=== PATIENT | female | born 1975 | race Caucasian/White ===

== ENCOUNTER 2016-08-19 12:25 | Inpatient (IN) | payer BC ==
[2016-08-16 13:19] VITALS: BMI 37.0
--- NOTE | 2016-08-16 13:42 | PAT Medication Instructions ---
Service Date Aug 16, 2016. Current Home Medication List Heparin Sod (Porcine) (Heparin Sodium), 10,000 UNITS SQ BID Insulin Human NPH (Humulin N), 42 UNITS SQ HS Insulin Lispro (Human) (Humalog), 8 UNITS SQ DINNERTIME Multivit/Min/Iron/Fol Ac/Pren ( Vitamin), 1 TAB PO QAM Medication Instructions For Your Scheduled Surgery Heparin Sod (Porcine) (Heparin Sodium), 10,000 UNITS SQ BID (patient will check with OB doctor for instructions) - Hold the following medications the morning of surgery: Multivit/Min/Iron/Fol Ac/Pren ( Vitamin), 1 TAB PO QAM - Take the following medications as scheduled the night before surgery: Insulin Human NPH (Humulin N), 42 UNITS SQ HS Insulin Lispro (Human) (Humalog), 8 UNITS SQ DINNERTIME If you have any questions please call us at [phone] or [phone] ( [place]) or [phone]
[2016-08-16 14:47] LABS: BASO % 0.2 %; BASO ABS # 0.02 K/uL (0-0.2); COMPLETE YES; EOS % 0.9 %; HEMATOCRIT 32.2 % (37-47); IG% 0.4 %; LYMPH % 19.6 %; MEAN CELL VOLUME 86.3 fL (80-100); MEAN CORPUSCULAR HEMOGLOBIN 29.8 pg (25-34); MEAN CORPUSCULAR HGB CONC 34.5 g/dl (32-36); MEAN PLATELET VOLUME 11.6 fL (7.4-10.4); MONO % 6.1 %; NEUT % 72.8 %; PLATELET COUNT 228 K/uL (130-400); RED BLOOD COUNT 3.73 M/uL (4.2-5.4); WHITE BLOOD COUNT 9.19 K/uL (4.8-10.8)
[~2016-08-19] VITALS: Ht 170.2 cm; Wt 110.0 kg
[~2016-08-19 12:25] MED LIST: HMLNPUC SQ; INSU100I SQ; PRENTAB26 PO; [UNRECOGNIZED DRUG - CODE] SQ
[2016-08-19] MEDS ORDERED: CITRIC ACID/SODIUM CITRATE 15 ML UDC PO SCH (13:00)
[2016-08-19] MEDS ORDERED: CEFAZOLIN IV 3,000 MG in DEXTROSE 5% 50ML IV SCH (13:00)
[2016-08-19] MEDS ORDERED: LACTATED RINGER'S 1000ML 1,000 ML IV SCH ×2 (13:00→14:50)
[2016-08-19] MEDS ORDERED: LACTATED RINGER'S 1000ML 1,000 ML IV PRN (14:50)
[2016-08-19] MEDS ORDERED: CITRIC ACID/SODIUM CITRATE 15 ML UDC PO ONE (15:00)
--- NOTE | 2016-08-19 15:06 | Progress Note ---
Progress Note Date of Service Aug 19, 2016. Progress Note Admit Note 40 WF P1001 at 37.2 weeks seen in [place] today for NST and noted to have elevated BP on several measurements. Urine protein today on L&D was negative. Mild headaches with no visual disturbances. No nausea or vomiting and no abdominal pain or vaginal bleeding. She has a history of prior at term and has GDM on insulin. She takes 8 units Sub-Q before dinner and 42 units Sub-Q at bedtime. Class 2 obesity. She has a history of Factor V Leiden mutation with prior DVT and was on Lovenox 40 mg sub-Q daily and converted to Heparin 10,000 units every 12 hours at 36 weeks. Her last dose was around 10-10 :30 PM last night. She had a light breakfast this AM and no lunch today. Patient was scheduled fror a repeat and bilaterl tubal ligation on September. Due to gestational hypertension and diabetes will proceed wit repeat and tubal ligation.
[2016-08-19 15:52] VITALS: Ht 170.2 cm; Wt 110.0 kg
[2016-08-19 15:56] LABS: HEMATOCRIT 32.9 % (37-47); MEAN CELL VOLUME 86.1 fL (80-100); MEAN CORPUSCULAR HEMOGLOBIN 29.6 pg (25-34); MEAN CORPUSCULAR HGB CONC 34.3 g/dl (32-36); MEAN PLATELET VOLUME 11.4 fL (7.4-10.4); PLATELET COUNT 223 K/uL (130-400); RED BLOOD COUNT 3.82 M/uL (4.2-5.4); WHITE BLOOD COUNT 9.91 K/uL (4.8-10.8)
--- NOTE | 2016-08-19 16:04 | HISTORY & PHYSICAL EXAMINATION ---
DATE OF ADMISSION: 08/19/2016 REASON FOR ADMISSION: Elevated blood pressure and gestational diabetes, on insulin. HISTORY OF PRESENT ILLNESS: The patient is a 40-year-old female para 1-0-0-1 at 37.2 weeks' here at [facility] today by Dr. Mena for an NST, noted to have elevated blood pressures several measurements. The patient presented to L\T\D today after being sent here for persistent elevated blood pressures and mild headaches with no visual disturbances. The patient is currently on insulin 8 units subQ before dinner and 42 units subQ at bedtime. She is class 2 obese, factor V Leiden, history of DVT, on heparin 10,000 units q. 12 along with vitamins. The patient last had her dose of heparin at about 10:30 last night and had a light breakfast this morning. She is scheduled for an elective repeat section on 09/03/2016 due to prior that was done in 2011, unknown scar. PAST MEDICAL HISTORY: Class 2 obesity, gestational diabetes with insulin, prior section, factor V Leiden, allergic rhinitis, GERD, and elderly multigravida. PAST SURGICAL HISTORY: in 2011, ankle surgery in 2012, colonoscopy and endoscopy. FAMILY HISTORY: Noncontributory. REVIEW OF SYSTEMS: Negative. ALLERGIES: No known allergies. MEDICATIONS: Eight units of subQ insulin before dinner and 22 units of subQ insulin at bedtime, and vitamins. PHYSICAL EXAMINATION: HEENT: Within normal limits. LUNGS: Clear to auscultation. COR: Regular rate and rhythm. ABDOMEN: Soft, nontender, gravid. heart tone category 1. EXTREMITIES: 2+ edema, bilateral. NEUROLOGICALLY: Intact. Negative clonus. LABORATORY DATA: Pending. ASSESSMENT: Gestational hypertension with diabetes, on insulin. PLAN: Repeat section and bilateral tubal ligation due to gestational hypertension.
[2016-08-19 16:07] LABS: FIBRINOGEN* 532 mg/dl (184-400); INR 0.9 (0.9-1.1); PARTIAL THROMBOPLASTIN RATIO 1.1; PROTHROMBIN TIME (PATIENT) 9.1 SECONDS (9.0-12.0)
[2016-08-19 16:14] LABS: ALT/SGPT 19 U/L (12-78); AST/SGOT 21 U/L (15-37); BLOOD UREA NITROGEN 8 mg/dl (7-18); BUN/CREATININE RATIO 11.3 (10-20); CALCIUM 8.3 mg/dl (8.5-10.1); CARBON DIOXIDE 23 mmol/L (21-32); CHLORIDE 109 mmol/L (98-107); CREATININE 0.75 mg/dl (0.60-1.20); GLUCOSE 62 mg/dl (70-99); POTASSIUM 3.8 mmol/L (3.5-5.1); SODIUM 141 mmol/L (136-145); URIC ACID 4.7 mg/dl (2.6-7.2)
[2016-08-19 16:17] LABS: ALB/GLOB RATIO 0.6 (0.9-2); ALKALINE PHOSPHATASE 130 U/L (45-117)
[2016-08-19] MEDS ORDERED: MoRPHine SULFATE PF 1 MG/ML 10 ML AMP/VIAL ONE (17:02)
[2016-08-19] MEDS ORDERED: FENTANYL CITRATE INJ 50 MCG/1 ML 2 ML VIAL ONE (17:02)
[2016-08-19] MEDS ORDERED: OXYTOCIN INJ 10 UNITS/ML VIAL ONE ×2 (17:41→18:11)
[2016-08-19] MEDS ORDERED: NALOXONE HCL INJ 0.08 MG in SYRINGE 1.8 ML IV PRN (17:46)
[2016-08-19] MEDS ORDERED: NALOXONE HCL INJ 1 MG in SODIUM CHLORIDE 0.9% 1000ML 1,000 ML IV PRN ×4 (17:46)
[2016-08-19] MEDS ORDERED: LACTATED RINGER'S 1000ML 500 ML IV PRN (17:46)
[2016-08-19] MEDS ORDERED: SODIUM CHLORIDE 0.9% 1000ML 1,000 ML IV PRN (17:46)
[2016-08-19] MEDS ORDERED: EpHEDrine SULFATE INJ 50 MG/ML AMP IV PRN (18:00)
[2016-08-19] MEDS ORDERED: NALOXONE HCL 0.4 MG/1 ML VIAL/CARP IV PRN (18:00)
[2016-08-19] MEDS ORDERED: NO NARCOTICS OR SEDATIVES SCH (18:00)
[2016-08-19] MEDS ORDERED: PROMETHAZINE HCL INJ 25 MG in SODIUM CHLORIDE 0.9% 50ML 50 ML IV PRN (18:00)
[2016-08-19] MEDS ORDERED: DiphenhydrAMINE HCL 50 MG/ML VIAL IV PRN (18:00)
[2016-08-19] MEDS ORDERED: NALBUPHINE HCL INJ 10 MG/ML AMP IV PRN (18:00)
[2016-08-19] MEDS ORDERED: ONDANSETRON INJ 2 MG/ML 2 ML VIAL IV PRN ×2 (18:00→18:45)
[2016-08-19] MEDS ORDERED: MoRPHine SULFATE PF 1 MG/ML 10 ML AMP/VIAL EPI PRN (18:00)
[2016-08-19] MEDS ORDERED: OXYTOCIN INJ 20 UNITS in LACTATED RINGER'S 1000ML 1,000 ML IV SCH (18:33)
--- NOTE | 2016-08-19 18:39 | [facility] Post Operative Brief Note ---
Immediate Operative Summary Operative Date Aug 19, 2016. Pre-Operative Diagnosis Gestational hypertension, gestational diabetes, class 2 obesity, history of deep vein thrombosis, Factor V Leiden, prior caesarean section, desires sterilization. Post-Operative Diagnosis Same Procedure(s) Performed Repeat section low segment transverse Bilateral tubal ligation with Filshie clips Surgeon Dr. Diego Heart Skiver Uppers Or Linings Surgeon(s) Dr. Codie Wilson Estimated Blood Loss 400 ml. Findings live female with Apgars 8/9 weight 5-15 2 true knots in cord Fluids (cc crystalloids) LR 1000 ml. Specimens A- Placenta- B- Cord blood D- Portion of Left Fallopian tube Drains Ponce 200 ml. Anesthesia spinal Complication(s) None Disposition L&D
[2016-08-19] MEDS ORDERED: SENNA 8.6 MG TAB PO PRN (18:45)
[2016-08-19] MEDS ORDERED: DIPHTHERIA/TETANUS/PERTUSSIS 0.5 ML SYR/VIAL IM. ONE (18:45)
[2016-08-19] MEDS ORDERED: MEASLES, MUMPS & RUBELLA VIRUS VIAL SQ. ONE (18:45)
[2016-08-19] MEDS ORDERED: MAGNESIUM HYDROXIDE SUSP 30 ML UDC PO PRN (18:45)
[2016-08-19] MEDS ORDERED: HYDROCORTISONE ACETATE 25 MG SUPP PR PRN (18:45)
[2016-08-19] MEDS ORDERED: SUPERCREAM 0.870 % 15GM JAR EXT PRN (18:45)
[2016-08-19] MEDS ORDERED: LANOLIN OINT EXT PRN ×2 (18:45)
[2016-08-19] MEDS ORDERED: BENZOCAINE 20% AER SPR 82.5 GM CAN EXT PRN (18:45)
--- NOTE | 2016-08-19 18:47 | Anesthesiology Progress Note ---
Anesthesia Post Op Note Date & Time Aug 19, 2016 at 18:46 Notes Mental Status: alert / awake / arousable, participated in evaluation Pt Amnestic to Procedure: No Nausea / Vomiting: adequately controlled Pain: adequately controlled Airway Patency, RR, SpO2: stable & adequate BP & HR: stable & adequate Hydration State: stable & adequate Neuraxial Anesthesia: was administered, sensory block is resolving Anesthetic Complications: no major complications apparent
[2016-08-19] MEDS: KETOROLAC TROMETHAMINE 30 MG/ML VIAL IV. PRN (19:33)
--- NOTE | 2016-08-19 20:15 | OPERATIVE REPORT ---
DATE OF ADMISSION: 08/19/2016 PREOPERATIVE DIAGNOSES: at 37 weeks' and 2 days with gestational hypertension, diabetes on insulin and voluntary sterilization. POSTOPERATIVE DIAGNOSES: Same. PROCEDURE: Repeat section, low segment transverse and bilateral tubal ligation with Filshie clips. SURGEON: Diego Heart MD PIANO REGULATOR: Dr. Wilson ANESTHESIA: Spinal with Duramorph. CLINICAL HISTORY: The patient is a 40-year-old female, para 1-0-0-1 at 37 weeks' and 2 days; admitted after being seen today in the office at [place] for gestational hypertension that has been persistent today. She has gestational diabetes on insulin, history of factor V Leiden on heparin for previous DVT. The patient consented for repeat section and a bilateral tubal ligation, a timeout was called prior to the start of the procedure and the patient received antibiotics preop. DESCRIPTION OF PROCEDURE: Under satisfactory spinal anesthesia, the patient was prepped and draped in usual sterile fashion. A low Pfannenstiel incision through a prior scar was made, entering into the abdominal cavity in successive layers without difficulty. Upon entering into the lower uterine segment, pickups with teeth and Metzenbaum scissors were used to develop a bladder flap. This was gently dissected down. A low segment transverse incision over the lower uterine segment was made. The incision was widened. The amniotic sac was nicked with an Allis clamp. Clear fluid was noted. The infant was then delivered from the vertex presentation with the aid of fundal pressure. After the infant was delivered, the cord was allowed to stop pulsating; it was then doubly clamped and cut. It was noted that there was a double true knot in the cord. Cord blood was obtained. Placenta was then delivered spontaneously, intact and submitted to pathology as a separate specimen. The uterus was then exteriorized. Pitocin was started in the IV. Ring forceps were then placed on both angles and then the inferior margin and another ring was used to dilate the cervix. The cervix was closed in a double layer closure with 0 Vicryl suture in a continuous interlocking fashion followed by an imbricating suture. Tubes and ovaries bilaterally were found to be within normal limits. There was no active bleeding. The tubes were then identified and 2 Filshie clips were then applied to both the right and left tubes serially. At the end of this procedure, no active bleeding was noted. The contents of the pelvic cavity were then irrigated to clear. The uterus was placed back into the normal anatomical position. The initial sponge, needle and instrument count were found to be correct. Several pieces of Seprafilm were then placed over the lower uterine segment and in the midline of the uterus. The fascia was then reapproximated with 0 Vicryl suture in a continuous fashion. Subcuticular space was irrigated and then closed with 3-0 plain suture interrupted and the skin was reapproximated with 4-0 Monocryl subcuticular suture. Steri-Strips were then applied. Clear urine was noted from the Ponce. Estimated blood loss was 400 mL, urine output was 200 mL and total fluids LR 1000 mL The patient was then placed supine on a stretcher. The final sponge, needle and instrument count were found to be correct and she was moved to the recovery room in stable condition. ELIZABETH
[2016-08-19] MEDS: SIMETHICONE 80 MG CHEW PO SCH (20:34)
[2016-08-19] MEDS: DOCUSATE SODIUM 100 MG CAP PO SCH (20:34)
[2016-08-19 20:45] VITALS: BP 165/82; PULSE 80; TEMP 37; O2SAT 100
[2016-08-19 21:30] VITALS: O2SAT 98
[2016-08-19 22:30] VITALS: O2SAT 98
[2016-08-19 23:30] VITALS: BP 146/89; PULSE 65; TEMP 36.7; O2SAT 98
[2016-08-20] VITALS (19 sets, daily range): BP systolic 136–150; BP diastolic 84–92; PULSE 67–87; TEMP 36.7–36.9; O2SAT 94–99
[2016-08-20] MEDS: LACTATED RINGER'S 1000ML 1,000 ML IV SCH ×2 (03:52→11:31)
[2016-08-20] MEDS: KETOROLAC TROMETHAMINE 30 MG/ML VIAL IV. PRN ×2 (03:59→11:46)
[2016-08-20] MEDS ORDERED: CEFAZOLIN IV 3,000 MG in DEXTROSE 5% 50ML 50 ML IV SCH (06:00)
[2016-08-20 06:26] LABS: BASO % 0.3 %; BASO ABS # 0.03 K/uL (0-0.2); COMPLETE YES; EOS % 0.7 %; HEMATOCRIT 26.6 % (37-47); IG% 0.2 %; LYMPH % 17.9 %; LYMPH ABS # 1.75 K/uL (1.2-3.4); MEAN CELL VOLUME 86.1 fL (80-100); MEAN CORPUSCULAR HEMOGLOBIN 29.4 pg (25-34); MEAN CORPUSCULAR HGB CONC 34.2 g/dl (32-36); MONO % 6.2 %; NEUT % 74.7 %; PLATELET COUNT 178 K/uL (130-400); RED BLOOD COUNT 3.09 M/uL (4.2-5.4); WHITE BLOOD COUNT 9.77 K/uL (4.8-10.8)
--- NOTE | 2016-08-20 07:34 | OB/GYN Progress Note ---
[employer] [facility] Progress Note Date of Service: Aug 20, 2016. Patient is seen and examined. She feels well, no complaints. Pain is under control with meds. Not OOB yet Tolerating clear diet with out N&V Bleeding is minimal No fever/ chills/ CP/ SOB/ N&V/ Leg pain Bottle feeding without problems Date Time Temp Pulse Resp B/P Pulse Ox O2 Delivery O2 Flow Rate FiO2 08/20/16 06:28 20 97 08/20/16 05:31 18 94 08/20/16 04:27 18 98 08/20/16 03:45 36.7 67 18 150/91 98 Room Air 08/20/16 03:30 18 98 08/20/16 02:30 18 96 08/20/16 01:30 18 96 08/20/16 00:30 18 98 08/19/16 23:30 36.7 65 18 146/89 98 Room Air 08/19/16 23:30 98 Room Air 08/19/16 23:30 18 98 08/19/16 22:30 18 98 08/19/16 21:30 18 98 08/19/16 20:45 37.0 80 18 165/82 100 Room Air 08/19/16 20:45 100 Room Air 08/19/16 20:45 Room Air 08/19/16 20:45 18 100 Repeat BP: 136/84 8-Hour Column 08/19/16 08/20/16 08/20/16 16:00 00:00 08:00 Intake Total 324 ml 1352 ml Output Total 100 ml 550 ml Balance 224 ml 802 ml 24-Hour Column 08/20/16 08:00 Intake Total 1676 ml Output Total 650 ml Balance 1026 ml Results Past 24 Hours Test 08/19/16 15:40 08/19/16 16:32 08/20/16 06:05 Range/Units White Blood Count 9.91 9.77 4.8-10.8 K/uL Red Blood Count 3.82 3.09 4.2-5.4 M/uL Hemoglobin 11.3 9.1 12.0-16.0 g/dL Hematocrit 32.9 26.6 37-47 % Mean Corpuscular Volume 86.1 86.1 80-100 fL Mean Corpuscular Hemoglobin 29.6 29.4 25-34 pg Mean Corpuscular Hemoglobin Concent 34.3 34.2 32-36 g/dl RDW Standard Deviation 42.4 42.6 36.4-46.3 fL RDW Coefficient of Variation 13.5 13.4 11.5-14.5 % Platelet Count 223 178 130-400 K/uL Mean Platelet Volume 11.4 11.0 7.4-10.4 fL Prothrombin Time 9.1 9.0-12.0 SECONDS Prothromb Time International Ratio 0.9 0.9-1.1 Activated Partial Thromboplast Time 29.4 21.0-31.0 SECONDS Partial Thromboplastin Ratio 1.1 Fibrinogen 532 184-400 mg/dl Fibrin Degradation Products 10-40 <10 mcg/ml Sodium Level 141 136-145 mmol/L Potassium Level 3.8 3.5-5.1 mmol/L Chloride Level 109 98-107 mmol/L Carbon Dioxide Level 23 21-32 mmol/L Anion Gap 9.0 3-11 mmol/L Blood Urea Nitrogen 8 7-18 mg/dl Creatinine 0.75 0.60-1.20 mg/dl Est Creatinine Clear Calc Drug Dose 130.0 ml/min Estimated GFR () 117.2 Estimated GFR (Non- 101.1 BUN/Creatinine Ratio 11.3 10-20 Random Glucose 62 70-99 mg/dl Uric Acid 4.7 2.6-7.2 mg/dl Calcium Level 8.3 8.5-10.1 mg/dl Total Bilirubin 0.3 0.2-1 mg/dl Direct Bilirubin < 0.1 0-0.2 mg/dl Aspartate Amino Transf (AST/SGOT) 21 15-37 U/L Alanine Aminotransferase (ALT/SGPT) 19 12-78 U/L Alkaline Phosphatase 130 45-117 U/L Lactate Dehydrogenase 274 84-246 U/L Total Protein 6.7 6.4-8.2 gm/dl Albumin 2.4 3.4-5.0 gm/dl Globulin 4.3 2.5-4.0 gm/dl Albumin/Globulin Ratio 0.6 0.9-2 Bedside Glucose 63 70-90 mg/dl Neutrophils (%) (Auto) 74.7 % Lymphocytes (%) (Auto) 17.9 % Monocytes (%) (Auto) 6.2 % Eosinophils (%) (Auto) 0.7 % Basophils (%) (Auto) 0.3 % Neutrophils # (Auto) 7.29 1.4-6.5 K/uL Lymphocytes # (Auto) 1.75 1.2-3.4 K/uL Monocytes # (Auto) 0.61 0.11-0.59 K/uL Eosinophils # (Auto) 0.07 0-0.5 K/uL Basophils # (Auto) 0.03 0-0.2 K/uL Immature Granulocyte % (Auto) 0.2 % Immature Granulocyte # (Auto) 0.02 0.00-0.02 K/uL PE: General: Alert, orientedx3, NAD CVS: S1S2 RRR Lungs; CTAB Abd: soft, NT, fundus firm, below Umbilicus Dressin: Clean, dry, intact Perineum intact, Lochia rubra minimal Ext; NT, 1+/1+ edema, SCD's on, no erythema or cord AP: 40 yo s/p RC Section, BTL pod# 1 VSS Afebrile doing well Continue routine postop care Will stat Lovenox today Encourage ambulation, PO intake All questions were answered
[2016-08-20] MEDS: FERROUS SULFATE 325 MG TAB PO SCH (08:23)
[2016-08-20] MEDS: DOCUSATE SODIUM 100 MG CAP PO SCH ×2 (08:23→20:43)
[2016-08-20] MEDS: SIMETHICONE 80 MG CHEW PO SCH ×4 (08:24→20:43)
[2016-08-20] MEDS: PRENATAL VITAMIN TAB PO SCH (08:24)
[2016-08-20] MEDS ORDERED: MEPERIDINE HCL 75 MG/ML CARP IV PRN (12:30)
[2016-08-20] MEDS ORDERED: KETOROLAC TROMETHAMINE 30 MG/ML VIAL IV. PRN (12:30)
[2016-08-20] MEDS ORDERED: DiphenhydrAMINE HCL 50 MG/ML VIAL IV PRN (12:30)
[2016-08-20] MEDS ORDERED: MEPERIDINE HCL 50 MG/ML CARP IV PRN (12:30)
[2016-08-20] MEDS ORDERED: OXYCODONE/ACETAMINOPHEN 5-325 TAB PO PRN (12:30)
[2016-08-20] MEDS ORDERED: DC INTRASPINAL MORPHINE SCH (12:30)
[2016-08-20] MEDS: OXYCODONE/ACETAMINOPHEN 5-325 TAB PO PRN ×2 (17:18→23:37)
[2016-08-20] MEDS: ENOXAPARIN 40 MG/0.4 ML SYR SQ SCH (18:02)
[2016-08-20] MEDS: IBUPROFEN 600 MG TAB PO PRN ×2 (19:19→23:37)
[2016-08-20] MEDS ORDERED: BISACODYL 5 MG TABEC PO ONE (22:00)
[2016-08-21 04:15] VITALS: BP 131/77; PULSE 72; TEMP 36.5
[2016-08-21] MEDS: FERROUS SULFATE 325 MG TAB PO SCH (07:39)
[2016-08-21] MEDS: SIMETHICONE 80 MG CHEW PO SCH ×4 (07:39→19:56)
[2016-08-21] MEDS: IBUPROFEN 600 MG TAB PO PRN ×4 (07:40→21:14)
[2016-08-21] MEDS: PRENATAL VITAMIN TAB PO SCH (07:40)
[2016-08-21] MEDS: OXYCODONE/ACETAMINOPHEN 5-325 TAB PO PRN ×4 (07:40→21:15)
[2016-08-21 08:00] VITALS: BP 142/87; PULSE 74; TEMP 36.8
[2016-08-21] MEDS: DOCUSATE SODIUM 100 MG CAP PO SCH ×2 (08:02→19:56)
--- NOTE | 2016-08-21 10:26 | OB/GYN Progress Note ---
TRANSPORTATION ASSISTANT Progress Note Date of Service Aug 21, 2016. Subjective conversation w/ patient, physical exam Ambulation: ambulating normally Voiding: no voiding problems Passing Gas: Yes Diet Tolerance: Regular Diet Lochia: Moderate Feeding Type: Breast Feeding Review of Systems Constitutional: No chills, No fatigue, No fever, No problem reported, No sweats , No weakness, No weight loss Respiratory: No cough, No dyspnea at rest, No dyspnea on exertion, No hemoptysis, No problem reported, No shortness of breath, No sputum, No wheezing Cardiac: No PND, No chest pain, No claudication, No edema, No orthopnea, No palpitations, No problem reported Breast: No breast lump, No breast pain, No change in shape, No nipple discharge , No problem reported, No see HPI Abdomen: No GI bleeding, No constipation, No diarrhea, No nausea, No pain, No problem reported, No vomiting Female : No abnormal vaginal bleeding, No dysuria, No hematuria, No incontinence, No problem reported, No see HPI, No urinary frequency, No vaginal discharge Objective Vital Signs Date Time Temp Pulse Resp B/P Pulse Ox O2 Delivery O2 Flow Rate FiO2 08/21/16 08:00 36.8 74 18 142/87 Room Air 08/21/16 07:45 Room Air 08/21/16 04:15 36.5 72 18 131/77 Room Air 08/20/16 23:40 Room Air 08/20/16 23:40 36.8 87 18 148/89 Room Air 08/20/16 21:00 36.7 83 18 140/85 98 Room Air 08/20/16 16:40 36.7 76 18 145/92 99 Room Air 08/20/16 16:40 99 Room Air 08/20/16 11:40 36.8 75 18 145/85 96 Room Air 08/20/16 11:30 18 96 08/20/16 10:34 16 97 Physical Exam General Appearance: WELL-APPEARING, WD/WN Respiratory/Chest: chest non-tender, lungs clear, normal breath sounds, no respiratory distress, no accessory muscle use Cardiovascular: regular rate, rhythm, no edema, no gallop, no JVD, no murmur Abdomen: normal bowel sounds, non tender, soft, no organomegaly, no pulsatile mass Fundus: Firm Incision Description: Clean, Dry & Intact, Erythema Extremities: normal range of motion, non-tender, normal inspection, no pedal edema, no calf tenderness Assessment and Plan Day Number: 2 Continue Routine Care: Hx of VTE- on Lovenox anticipate disch tomorrow
[2016-08-21 11:48] VITALS: BP_SYST 132; BP_SYST 147; BP_DIAS 77; BP_DIAS 88; PULSE 76; PULSE 80; TEMP 36.5; TEMP 37
[2016-08-21 15:49] VITALS: BP 140/90; PULSE 81; TEMP 36.5
[2016-08-21] MEDS: ENOXAPARIN 40 MG/0.4 ML SYR SQ SCH (18:00)
[2016-08-21] MEDS ORDERED: BISACODYL 10 MG SUPP PR PRN (18:45)
[2016-08-21 23:25] VITALS: BP 145/89; PULSE 79; TEMP 36.9; O2SAT 96
[2016-08-22] MEDS: OXYCODONE/ACETAMINOPHEN 5-325 TAB PO PRN ×2 (05:00→09:11)
[2016-08-22] MEDS: IBUPROFEN 600 MG TAB PO PRN ×2 (05:01→08:06)
[2016-08-22 08:00] VITALS: BP 141/92; PULSE 88; TEMP 36.8; O2SAT 96
[2016-08-22] MEDS: DOCUSATE SODIUM 100 MG CAP PO SCH (08:04)
[2016-08-22] MEDS: FERROUS SULFATE 325 MG TAB PO SCH (08:04)
[2016-08-22] MEDS: PRENATAL VITAMIN TAB PO SCH (08:04)
[2016-08-22] MEDS: SIMETHICONE 80 MG CHEW PO SCH (08:06)
[2016-08-22] MEDS ORDERED: LVNIS40 SQ (09:38)
--- NOTE | 2016-08-22 09:43 | Surgery Progress Note ---
Surgery Progress Note Date of Service Aug 22, 2016. Subjective Post OP Day: 3 + ambulating, + bowel movement, + diet, + feeling well, + flatus, + pain controlled Objective Vital Signs: Date Time Temp Pulse Resp B/P Pulse Ox O2 Delivery O2 Flow Rate FiO2 08/22/16 08:00 Room Air 08/22/16 08:00 36.8 88 16 141/92 96 Room Air 08/21/16 23:25 96 Room Air 08/21/16 23:25 36.9 79 20 145/89 96 Room Air 08/21/16 16:10 Room Air 08/21/16 15:49 36.5 81 18 140/90 Room Air 08/21/16 11:48 36.5 80 18 147/88 Room Air General Appearance: no apparent distress Abdomen: non tender, non distended, soft Incision(s): clean, dry, intact Extremities: non-tender, normal inspection, no calf tenderness, + pedal edema Assessment & Plan POD#3 discharged follow up in 1 week
[2016-08-22] MEDS ORDERED: OXYC-57 PO (09:48)
[2016-08-22] MEDS ORDERED: MTR600X PO (09:48)
[2016-08-22 12:30] VITALS: BP_DIAS 92; PULSE 88; TEMP 36.8
--- NOTE | 2016-09-03 08:45 | DISCHARGE SUMMARY ---
REASON FOR ADMISSION AND HOSPITAL COURSE: The patient was admitted at 37 weeks and 2 days on 08/19/2016 for a repeat section and bilateral tubal ligation. The patient was seen in the office at [place] when on 08/19/2016 and was found to have elevated blood pressure consistent with gestational hypertension. She has a history of factor V Leiden on insulin and a history of prior DVT. She was consented for repeat section and bilateral tubal ligation. section was performed under spinal anesthesia without difficulty delivering a live female with Apgars of 8 and 9. weight was 5 pounds 15 ounces. There were 2 true knots in the cord. The postop course was uneventful. The patient was started on Lovenox . She was discharged in stable condition on 08/22/2016 on regular diet. DISCHARGE MEDICATIONS: She was discharged with the following medications: Lovenox 40 mg subQ daily, Motrin 600 mg and oxycodone p.r.n. pain. DISCHARGE FOLLOWUP: The patient will be followed up in the office in 1 week for an incision check. CONDITION ON DISCHARGE: Stable. ELIZABETH
== END 2016-08-22 12:30 | disposition home or self-care (01) | DRG 765 ==
LOC: C.LD 14:09 → C.OBG 20:50 → EDSTATUS 09-03 11:24
PROVIDERS: ADMIT Obstetrics & Gynecology; ATTEND Obstetrics & Gynecology
PROC: 10D00Z1 Extraction of Products of Conception, Low, Open Approach (ICD-10-PCS; principal; 2016-08-19 16:10)
PROC: 0UL70ZZ Occlusion of Bilateral Fallopian Tubes, Open Approach (ICD-10-PCS; principal; 2016-08-19 16:10)
DX: O13.3 Gestational [pregnancy-induced] hypertension without significant proteinuria, third trimester (principal); O99.12 Other diseases of the blood and blood-forming organs and certain disorders involving the immune mechanism complicating childbirth; D68.51 Activated protein C resistance; Z37.0 Single live birth; O24.424 Gestational diabetes mellitus in childbirth, insulin controlled; O34.219 Maternal care for unspecified type scar from previous cesarean delivery; O99.214 Obesity complicating childbirth; E66.01 Morbid (severe) obesity due to excess calories; O26.893 Other specified pregnancy related conditions, third trimester; O69.2XX0 Labor and delivery complicated by other cord entanglement, with compression, not applicable or unspecified; Z79.899 Other long term (current) drug therapy; Z79.01 Long term (current) use of anticoagulants; Z86.718 Personal history of other venous thrombosis and embolism; Z30.2 Encounter for sterilization; Z3A.37 37 weeks gestation of pregnancy; Z79.4 Long term (current) use of insulin; Z68.38 Body mass index [BMI] 38.0-38.9, adult